=== PATIENT | female | born 1965 | race Caucasian/White ===

== ENCOUNTER 2017-07-15 07:34 | Day surgery (SDC) | payer BC ==
[2017-07-10 16:52] LABS: Absolute Lymphocytes (CBC) 1.6 K/uL (0.7-4.9); Absolute Monocytes 0.5 K/uL (0.1-1.3); Absolute Neutrophil 4.3 K/uL (1.8-8.0); Basophils % 0.8 % (0-1.3); Eosinophils % 2.7 % (0-4.4); Hematocrit 39.3 % (36.0-45.0); Lymphocytes % 23.8 % (15.3-44.8); MCH 29.7 pg (27.0-35.0); MCV 87.9 fL (80-100); MPV 8.7 fL (7.6-11.3); Monocytes % 7.1 % (3.3-12.3); RBC Red Blood Cell Count 4.47 M/uL (3.86-4.86)
--- NOTE | 2017-07-11 14:45 | PREOPHP ---
Date of Admission: 07/15/2017 History Of Present Illness: Ms. Padilla is a 51-year-old female, 3, para 2- 0-1-2, who has documented elevated FSH, signifying menopause for over a 2-year period of time. She h ad been doing well and called at the office and said she had bleeding like a period. On evaluation i n the office, we were unsuccessful in doing endometrial biopsy; because of this, she is admitted for hysteroscopy and dilatation and curettage for evaluation of postmenopausal bleeding. Past Medical History: Includes 2 prior vaginal deliveries, one prior spontaneous AB. She has no oth er significant hospitalizations, accidents, illnesses, or injuries. Medications: She is on no medications on a regular basis other than occasional tablets of Imitrex fo r headaches. Allergies: SHE HAS NO KNOWN ALLERGIES. Social History: She does not smoke. Family History: Noncontributory. Review of Systems: She reports no recent cough, cold, fever, or chills. No recent nausea or vomiting. She denies any b reast lumps or breast knots. She denies any bladder issues or bowel issues. Physical Examination: General: Reveals a pleasant female, in no apparent distress. Neck: Supple without adenopathy or thyromegaly. Lungs: Clear. Cardiac: Regular rate and rhythm without murmurs. Breasts: Not examined. Abdomen: Without organosplenomegaly. Pelvic: Normal female external genitalia. Vaginal wall is pink and rugated. Cervix, multiparous, b imanual. No abnormalities. Extremities: No cyanosis, clubbing, or edema. Plan: The patient will undergo hysteroscopy and dilatation and curettage of the endometrium for eval uation of postmenopausal bleeding. The risks and benefits are discussed. She has signed operative p ermit in my presence. JULITO/MODL Voice ID: [id number]
[2017-07-15] MEDS ORDERED: MIDAZOLAM HCL 2 MG/2 ML INJ ONE (08:26)
[2017-07-15] MEDS ORDERED: LIDOCAINE 2% MPF 5 ML VIAL ONE (08:26)
[2017-07-15] MEDS ORDERED: PROPOFOL 200 MG/20 ML VIAL IV ONE (08:26)
[2017-07-15] MEDS ORDERED: ONDANSETRON 4 MG/2 ML VIAL ONE (08:27)
[2017-07-15] MEDS ORDERED: SILVER NITRATE 1 APPL TOP ONE ×2 (08:27→09:16)
[2017-07-15] MEDS ORDERED: FENTANYL CITR 100 MCG/2 ML ONE (08:27)
[2017-07-15] MEDS ORDERED: Ringers Lactate 1,000 ML IV ONE ×2 (08:31→09:16)
[2017-07-15] MEDS ORDERED: DEXAMETHASONE 10 MG/ML VIAL ONE (08:42)
--- NOTE | 2017-07-15 09:11 | P.BOP ---
Preoperative diagnosis: Post menopausal bleeding Postoperative diagnosis: same, endometrial polyps Primary procedure: hystercoscopy, D&C Estimated blood loss: less than 5ml Specimen: endometrial currettings Findings: 2-3 polyps Anesthesia: General Complications: None Transferred to: Recovery Room Condition: Good
[2017-07-15] MEDS ORDERED: NA CHLORIDE 0.9% 1,000 ML ONE (09:16)
--- NOTE | 2017-07-15 19:58 | DS ---
Date of Discharge: 07/15/2017 Final Hospital Discharge Diagnosis: Postmenopausal bleeding. Complications: None. Procedures: Hysteroscopy, dilation and curettage. Hospital Course: The patient is a 51-year-old, female, 3, para 2-0-1-2 with docume nted elevated FSH indicating menopausal status, who has not had menses for approximately 6 months per iod of time, having had heavy episode of bleeding. Because of inability to perform endometrial biops y in the office, she underwent hysteroscopy and D and C, which showed a couple of endometrial polyps with the pathology report pending. Lab work included a hemoglobin and hematocrit of 13.3 and 39.3. She was dismissed to be seen back in my office in 2 weeks with usual post hysteroscopy activity restr ictions. JULITO/JOANNA Voice ID: [id number] Report ID: [id number]
--- NOTE | 2017-07-15 19:58 | OP ---
Surgeon: Zander Coats MD Anesthesiologist: Mervat Lantigua and Dr. Gabe Silva. Preoperative Diagnosis: Postmenopausal bleeding. Procedures Performed: Hysteroscopy, dilatation and curettage. Postoperative Diagnosis: Postmenopausal bleeding with removal of endometrial polyps. Description Of Procedure: After satisfactory level of general anesthesia was obtained, the patient w as prepped and draped in the usual fashion in high leg holders. A bivalve speculum was placed in the vagina, cervix visualized and grasped with single-tooth tenaculum. Uterus sounded to approximately 8 cm and dilated to accept a hysteroscope. Hysteroscope revealed 2-3 endometrial polyps, which were then excised. This was followed by sharp curettage. The hysteroscope was removed. The patient was awakened, taken to recovery room in satisfactory condition, Estimated Total Blood Loss: Less than 5 mL. JULITO/JOANNA Voice ID: [id number] Report ID: [id number]
== END 2017-07-15 10:17 | disposition home or self-care (01) ==
LOC: OR 07:34
PROVIDERS: ATTEND Specialist
PROC: 0UDB8ZX Extraction of Endometrium, Via Natural or Artificial Opening Endoscopic, Diagnostic (ICD-10-PCS; 2017-07-15)
PROC: 0UB98ZX Excision of Uterus, Via Natural or Artificial Opening Endoscopic, Diagnostic (ICD-10-PCS; principal; 2017-07-15 08:30)
DX: N95.0 Postmenopausal bleeding (principal); N84.0 Polyp of corpus uteri
CPT/HCPCS: 36415; 81025; 85025; 88305; J1100; J2250; J2405; J3010; J7030